=== PATIENT | female | born 1985 | race African-American/Black ===

== ENCOUNTER 2017-12-11 07:38 | Inpatient (IN) | payer OTHER ==
[2017-12-11] MEDS: ELECTROLYTE-148 SOLN 1,000 ML IV SCH (08:05)
[2017-12-11 08:37] VITALS: BMI 42.9
[2017-12-11 08:55] LABS: BASO % 0.4 % (0-2.0); EOS % 1.8 % (0-4.5); HEMATOCRIT 33.5 % (32.4-45.2); HEMOGLOBIN 11.3 GM/dL (10.7-15.3); LYMPH % 24.2 % (8-40); MCH 30.2 pg (25.7-33.7); MCHC 33.7 g/dl (32.0-36.0); MEAN CELL VOLUME 89.7 fl (80-96); MEAN PLT VOLUME 7.7 fl (7.5-11.1); MONO % 5.2 % (3.8-10.2); NEUT % 68.4 % (42.8-82.8); PLATELET COUNT 289 K/MM3 (134-434); RBC 3.74 M/mm3 (3.60-5.2); RDW 13.9 % (11.6-15.6); WHITE BLOOD COUNT 9.7 K/mm3 (4.0-10.0)
[2017-12-11] MEDS ORDERED: CITRIC ACID/SODIUM CITRATE 30 ML UNIT-DOSE CUP PO ONE (09:16)
[2017-12-11 09:17] LABS: INR 1.01 (0.82-1.09); PROTHROMBIN TIME (PATIENT) 11.4 SEC (9.98-11.88)
[2017-12-11 09:18] LABS: ANION GAP 8 (8-16); BLOOD UREA NITROGEN 7 mg/dL (7-18); CHLORIDE 106 mmol/L (98-107); CO2 24 mmol/L (21-32); CREATININE 0.5 mg/dL (0.55-1.02); GLUCOSE,RANDOM 78 mg/dL (74-106); POTASSIUM 3.9 mmol/L (3.5-5.1); SODIUM 138 mmol/L (136-145)
[2017-12-11 09:20] LABS: ACTIVATED PTT 27.4 SECONDS (26.9-34.4)
--- NOTE | 2017-12-11 09:23 | HP ---
Past Medical History - Primary Care Physician PCP:: Live Ferrera - Admission Chief Complaint: 39.6 weeks, previous c/s, morbid obesity History of Present Illness: 32 yo f g 4 p1021 edc by sono 12/12 ,39.6 weeks with previous c/s , requesting repeat c/s , risks discussed , discussed , cx clp, vx -4 mi, fhr cat 1, no contraction. History Source: Patient Limitations to Obtaining History: No Limitations - Past Medical History ...: 4 ...Para: 1 ...Term: 1 ...: 0 ...Spon : 0 ...Induced : 2 ...Multiple Gestation: 0 ...LMP: 03/07/17 ... Weeks Gestation by Dates: 39.6 ...EDC by Dates: 12/12/17 ...EDC by Sono: 12/12/17 - Past Surgical History Past Surgical History: Yes: Hx Myomectomy: No Hx Transabdominal Cerclage: No - Smoking History Smoking history: Never smoked Have you smoked in the past 12 months: No Aproximately how many cigarettes per day: 2 - Alcohol/Substance Use Hx Alcohol Use: No - Social History Usual Living Arrangement: Yes: With Spouse History of Recent Travel: No Home Medications - Allergies Allergies/Adverse Reactions: Allergies Allergy/AdvReac Type Severity Reaction Status Date / Time No Known Allergies Allergy Verified 10/26/15 18:15 - Home Medications Home Medications: Ambulatory Orders Vit 108/Iron/Folic AC [ One Tablet] 1 tab PO DAILY 12/11/17 Review of Systems - Review of Systems Constitutional: reports: No Symptoms Eyes: reports: No Symptoms HENT: reports: No Symptoms Neck: reports: No Symptoms Cardiovascular: reports: No Symptoms Respiratory: reports: No Symptoms Gastrointestinal: reports: No Symptoms Genitourinary: reports: No Symptoms Breasts: reports: No Symptoms Reported Musculoskeletal: reports: No Symptoms Integumentary: reports: No Symptoms Neurological: reports: No Symptoms Endocrine: reports: No Symptoms Hematology/Lymphatic: reports: No Symptoms Psychiatric: reports: No Symptoms Physical Exam - Maternity Vital Signs: Vital Signs Temperature 98.1 F 12/11/17 07:38 Pulse Rate 87 12/11/17 07:38 Respiratory Rate 18 12/11/17 07:38 Blood Pressure 121/81 12/11/17 07:38 O2 Sat by Pulse Oximetry (%) Constitutional: Yes: Well Nourished, No Distress, Calm, Obese Eyes: Yes: WNL, Conjunctiva Clear, EOM Intact HENT: Yes: WNL, Atraumatic, Normocephalic Neck: Yes: WNL, Supple, Trachea Midline Cardiovascular: Yes: WNL, Regular Rate and Rhythm Breast(s): Yes: WNL - Abdominal Exam/OB Fundal Height: 40 Number of Fetuses: Single Presentation: Vertex Intensity: Unaware Monitor Mode: External Heart Rate Location: [facility] Category: I Accelerations: Uniform Decelerations: None - Vaginal Exam/OB Vaginal Bleediing: No Amniotic Membrane Status: Intact Presentation: Vertex/Position Station: -3 - Physical Exam Musculoskeletal: Yes: WNL Extremities: Yes: WNL Edema: LLE: 1+, RLE: 1+ Deep Tendon Reflex Grade: Normal +2 Psychiatric: Yes: WNL - Labs Lab Results: CBC, BMP 12/11/17 08:15 Hemorrhage Risk Assessment - Risk Factors Medium Risk Factors: Yes: Obesity (BMI >40) Risk Score: 1 Risk Level: Medium Risk Problem List - Problems (1) with 39 completed weeks gestation Code(s): Z3A.39 - 39 WEEKS GESTATION OF (2) Previous section Code(s): Z98.891 - HISTORY OF UTERINE SCAR FROM PREVIOUS SURGERY (3) Obesities, morbid Code(s): E66.01 - MORBID (SEVERE) OBESITY DUE TO EXCESS CALORIES (4) Fibroids, intramural Code(s): D25.1 - INTRAMURAL LEIOMYOMA OF UTERUS Assessment/Plan plan repeat c/s, risks discussed
[2017-12-11] MEDS ORDERED: ONDANSETRON 4 MG/2 ML VIAL IVPUSH PRN (09:26)
[2017-12-11] MEDS ORDERED: morphine SULFATE/Preservative Free 0.5 MG/ML (1cc Syringe) ONE (09:32)
[2017-12-11] MEDS ORDERED: BUPIVACAINE 0.75% IN DEXTROSE/PF 2ML AMPULE NR ONE (09:35)
[2017-12-11] MEDS ORDERED: SODIUM CHLORIDE 0.9% P/F 10 ML VIAL IJ ONE (10:02)
[2017-12-11] MEDS ORDERED: ceFAZolin SODIUM 1 GM VIAL ONE (10:02)
[2017-12-11] MEDS ORDERED: OXYTOCIN 10 UNITS/ML VIAL ONE (10:09)
[2017-12-11] MEDS ORDERED: KETOROLAC TROMETHAMINE 30 MG/1 ML VIAL ONE (10:09)
[2017-12-11] MEDS ORDERED: IBUPROFEN 600 MG TABLET (FP) PO PRN (10:54)
[2017-12-11] MEDS ORDERED: METHYLERGONOVINE MALEATE 0.2 MG/1 ML AMP IM PRN (10:54)
[2017-12-11] MEDS ORDERED: diphenhydrAMINE HCL 25 MG CAPSULE (FP) PO PRN (10:54)
[2017-12-11] MEDS ORDERED: WITCH HAZEL 50% (TUCKS) 40 PAD/JAR PAD TP PRN (10:54)
[2017-12-11] MEDS ORDERED: IBUPROFEN 800 MG/8 ML IJ IVPB PRN (10:54)
[2017-12-11] MEDS ORDERED: BENZOCAINE 20% 57 GM BOTTLE TP PRN (10:54)
[2017-12-11] MEDS ORDERED: BENZOCAINE 28 GM HEMORRHOIDAL OINTMENT PR PRN (10:54)
[2017-12-11] MEDS ORDERED: OXYTOCIN 20 UNITS in 0.9% NS 20 UNIT/1,000 ML INFUS.BAG IV SCH (11:00)
--- NOTE | 2017-12-11 11:34 | OP ---
DATE OF OPERATION: 12/11/2017 PREOPERATIVE DIAGNOSIS: at 39.6 weeks' gestation, previous section, morbid obesity, request of repeat section. POSTOPERATIVE DIAGNOSIS: at 39.6 weeks' gestation, previous section, morbid obesity, request of repeat section. PROCEDURE: Repeat low segment transverse section. SURGEON: Jayne Ferrera MD QUALITY CONTROL CHECKER: DEE Nunes ANESTHESIA: Spinal. ANESTHESIOLOGIST: ESTIMATED BLOOD LOSS: 500 mL. FINDINGS: A live baby girl, 9/9, ROT position. Cord around both feet. DESCRIPTION OF PROCEDURE: The patient was taken to the operating room under adequate spinal anesthesia. Abdomen and perineum was prepped and draped. Pfannenstiel abdominal skin incision was made. Abdominal wall was cut layer by layer until the peritoneum was exposed and incised. Upon entering the abdominal cavity, lower uterine segment was identified, and uterovesical fold of peritoneum established. Bladder was pushed down. Then with the lower blade of the Rocael retractor in pelvis, a low transverse uterine incision was made. Incision was extended laterally. Amniotic sac was entered. Clear fluid. Head delivered. Nasopharynx was suctioned, and live baby girl was delivered without any difficulty. Placenta was delivered manually. Uterine cavity was cleaned of all remaining tissue. Uterine incision was closed in 2 layers, the first layer with 0 Biosyn continuous suture, the second layer with 0 Biosyn imbricating the first layer. Bladder flap was closed with 0 Biosyn continuous suture. Both tubes and ovaries were checked and normal. No active bleeding was seen. All of the lap pad, sponge, and instrument counts were correct. Then peritoneum was closed with 0 Biosyn continuous suture. Muscles were brought together with interrupted sutures of 0 Biosyn. Fascia was closed with 0 Biosyn continuous suture, subcutaneous fat interrupted suture of 0 Biosyn, and the skin was closed with nahum. The patient tolerated the procedure well and left the OR in good condition. JAYNE FERRERA M.D. JUAN [id number]
[2017-12-11] MEDS ORDERED: OXYTOCIN 20 UNITS in 0.9% NS 20 UNIT/1,000 ML INFUS.BAG IV ONE (12:22)
[2017-12-11] MEDS: OXYTOCIN 20 UNITS in 0.9% NS 20 UNIT/1,000 ML INFUS.BAG IV SCH (12:35)
[2017-12-11] MEDS: ENOXAPARIN NA (PORCINE) 40 MG/0.4 ML DISP.SYRIN SQ SCH (14:40)
[2017-12-11] MEDS: CEFAZOLIN 1 GM/D5W 1 GM/50 ML BAG IVPB SCH (17:09)
[2017-12-12] MEDS: CEFAZOLIN 1 GM/D5W 1 GM/50 ML BAG IVPB SCH (01:26)
--- NOTE | 2017-12-12 06:01 | PN ---
Post Progress Note - Subjective Subjective: pt no c/o pain , scale 1-3 diaz catheter just removed . Post Day: 1 Type of Delivery: Repeat C/S Vital Signs: Vital Signs Temperature 99.1 F 12/12/17 02:00 Pulse Rate 93 H 12/12/17 02:00 Respiratory Rate 18 12/12/17 03:00 Blood Pressure 132/64 12/12/17 02:00 O2 Sat by Pulse Oximetry (%) 100 12/11/17 13:00 Breast Exam: Yes: Soft, Other (BF , large breast ). No: Engorged Uterus: Yes: Fundus Firm, Fundus below umbilicus, Non-tender Incision: Yes: Dressing dry and intact (stained with blood , as per nursepressure dressing was changed once at 4.00PM 12/11/17, since last night staining of dressing is same, has not got worse ) Abdomen/GI: Yes: Abdomen soft (BS active ), Abdominal Distention (obese abdomen ), Tender, Tolerating PO (clear fluids ). No: Passing flatus Lochia: Yes: Rubra Lochia, amount: Moderate (moderate to heavy) Extremities: Yes: Calves non-tender Activity: Other (not OOB yet ) - Labs Labs: CBC WBC 9.7 K/mm3 (4.0-10.0) 12/11/17 08:15 RBC 3.74 M/mm3 (3.60-5.2) 12/11/17 08:15 Hgb 11.3 GM/dL (10.7-15.3) 12/11/17 08:15 Hct 33.5 % (32.4-45.2) 12/11/17 08:15 MCV 89.7 fl (80-96) 12/11/17 08:15 MCH 30.2 pg (25.7-33.7) 12/11/17 08:15 MCHC 33.7 g/dl (32.0-36.0) 12/11/17 08:15 RDW 13.9 % (11.6-15.6) 12/11/17 08:15 Plt Count 289 K/MM3 (134-434) 12/11/17 08:15 MPV 7.7 fl (7.5-11.1) 12/11/17 08:15 Neutrophils % 68.4 % (42.8-82.8) 12/11/17 08:15 Lymphocytes % 24.2 % (8-40) 12/11/17 08:15 Monocytes % 5.2 % (3.8-10.2) 12/11/17 08:15 Eosinophils % 1.8 % (0-4.5) 12/11/17 08:15 Basophils % 0.4 % (0-2.0) 12/11/17 08:15 Other Findings, Remarks: i/o [id number] , RS cta Problem List - Problems (1) delivery delivered Code(s): O82 - ENCOUNTER FOR DELIVERY WITHOUT INDICATION Assessment/Plan s/p repeat c/section, obesity day#1 Plan cbc today watch for abd dressing , may need to be changed cbc today encourage anbulation, deep breathing , po fluids
[2017-12-12 09:03] LABS: BASO % 0.5 % (0-2.0); EOS % 1.9 % (0-4.5); HEMATOCRIT 31.9 % (32.4-45.2); HEMOGLOBIN 10.5 GM/dL (10.7-15.3); LYMPH % 12.4 % (8-40); MCH 29.7 pg (25.7-33.7); MCHC 33.1 g/dl (32.0-36.0); MEAN CELL VOLUME 89.8 fl (80-96); MEAN PLT VOLUME 7.4 fl (7.5-11.1); MONO % 3.8 % (3.8-10.2); NEUT % 81.4 % (42.8-82.8); PLATELET COUNT 271 K/MM3 (134-434); RBC 3.55 M/mm3 (3.60-5.2); RDW 14.1 % (11.6-15.6); WHITE BLOOD COUNT 15.5 K/mm3 (4.0-10.0)
[2017-12-12] MEDS: SIMETHICONE 80 MG TAB.CHEW (FP) PO PRN ×3 (10:51→22:15)
[2017-12-12] MEDS: ENOXAPARIN NA (PORCINE) 40 MG/0.4 ML DISP.SYRIN SQ SCH (10:51)
[2017-12-12] MEDS: IBUPROFEN 600 MG TABLET (FP) PO PRN ×3 (10:52→22:16)
[2017-12-12] MEDS: ACETAMINOPHEN 325 MG TABLET (FP) PO PRN ×3 (10:53→22:16)
[2017-12-12] MEDS ORDERED: BISACODYL 10 MG SUPP.RECT RC PRN (10:54)
--- NOTE | 2017-12-12 14:00 | PN ---
Progress Note (short form) - Note Progress Note: POD #1 - s/p under spinal anesthesia with duramorph. VSS. Pt. doing well, resting comfortably in bed. No complaints. Good pain control. No apparent anesthetic complications noted. Continue current care.
[2017-12-12] MEDS: ELECTROLYTE-148 SOLN 1,000 ML IV SCH (18:33)
[2017-12-12] MEDS: OXYTOCIN 20 UNITS in 0.9% NS 20 UNIT/1,000 ML INFUS.BAG IV SCH (18:33)
[2017-12-12] MEDS: DEXTROSE 5%-LACTATED RINGERS 1,000 ML IV SCH (18:34)
[2017-12-13] MEDS: oxyCODONE HCL 5 MG TABLET PO PRN ×4 (00:46→21:24)
[2017-12-13] MEDS: SIMETHICONE 80 MG TAB.CHEW (FP) PO PRN ×3 (09:18→21:24)
[2017-12-13] MEDS: ACETAMINOPHEN 325 MG TABLET (FP) PO PRN ×3 (09:19→21:25)
--- NOTE | 2017-12-13 09:46 | PN ---
Post Progress Note - Subjective Subjective: 32 yo Para 2 status post repeat , seen and evaluated. There's significant bleeding at incision site. She c/o incision pain. Post Day: 2 Type of Delivery: Repeat C/S Vital Signs: Vital Signs Temperature 98.8 F 12/12/17 22:00 Pulse Rate 85 12/13/17 06:00 Respiratory Rate 18 12/13/17 06:00 Blood Pressure 113/76 12/13/17 06:00 O2 Sat by Pulse Oximetry (%) 100 12/11/17 13:00 Breast Exam: Yes: Soft Uterus: Yes: Fundus Firm Incision: Yes: Other (Bleeding) Abdomen/GI: Yes: Abdomen soft, Tolerating PO Lochia: Yes: Rubra Lochia, amount: Small Extremities: Yes: Calves non-tender Perineum: Yes: Intact Activity: Other (She's lying in bed) - Labs Labs: CBC WBC 15.5 K/mm3 (4.0-10.0) H D 12/12/17 08:00 RBC 3.55 M/mm3 (3.60-5.2) L 12/12/17 08:00 Hgb 10.5 GM/dL (10.7-15.3) L 12/12/17 08:00 Hct 31.9 % (32.4-45.2) L 12/12/17 08:00 MCV 89.8 fl (80-96) 12/12/17 08:00 MCH 29.7 pg (25.7-33.7) 12/12/17 08:00 MCHC 33.1 g/dl (32.0-36.0) 12/12/17 08:00 RDW 14.1 % (11.6-15.6) 12/12/17 08:00 Plt Count 271 K/MM3 (134-434) 12/12/17 08:00 MPV 7.4 fl (7.5-11.1) L 12/12/17 08:00 Neutrophils % 81.4 % (42.8-82.8) 12/12/17 08:00 Lymphocytes % 12.4 % (8-40) D 12/12/17 08:00 Monocytes % 3.8 % (3.8-10.2) 12/12/17 08:00 Eosinophils % 1.9 % (0-4.5) 12/12/17 08:00 Basophils % 0.5 % (0-2.0) 12/12/17 08:00 Problem List - Problems (1) Status post repeat low transverse section Code(s): Z98.891 - HISTORY OF UTERINE SCAR FROM PREVIOUS SURGERY Assessment/Plan Status post repeat Keep pressure dressing Ambulation Analgesia as needed Continue close observation
[2017-12-13] MEDS: ENOXAPARIN NA (PORCINE) 40 MG/0.4 ML DISP.SYRIN SQ SCH (10:00)
[2017-12-13] MEDS: DEXTROSE 5%-LACTATED RINGERS 1,000 ML IV SCH (11:50)
[2017-12-13] MEDS: ELECTROLYTE-148 SOLN 1,000 ML IV SCH (11:50)
--- NOTE | 2017-12-13 14:27 | PATH ---
Surgical Pathology Report Patient Name: PEDRO ALMEIDA Med. Rec. #: [id number] /Age/Gender: 1985 (Age: 32) / F Account: [id number] Location: [facility] OBS/COLOR MATCHER Taken: 12/11/2017 Received: 12/12/2017 Reported: 12/13/2017 Physicians: Live Ferrera M.D. Specimen(s) Received PLACENTA Clinical History 39.6 weeks gestation, previous section x1, history of chronic hypertension, hyperthyroidism Final Diagnosis PLACENTA, SECTION: 560 g THIRD TRIMESTER PLACENTA WITH TRIVASCULAR UMBILICAL CORD AND UNREMARKABLE PLACENTAL MEMBRANES. Electronically Signed Tara Tsai M.D. Gross Description The specimen is received fresh labeled placenta and is a 560 gram, 20 x 19 x 2.2 cm. placenta with attached membranes and umbilical cord. The attached membranes are andre and translucent with focal opacities and insert marginally. The umbilical cord measures 40 cm. in length and averages 1.2 cm. in diameter. The cord inserts eccentrically. No true knots or strictures are identified. Cut surface of the umbilical cord reveals 3 vessels. The surface is mejía-blue with minimal fibrin deposition and appropriate caliber vessels. The maternal surface is red-brown with focal defects. Sectioning reveals red-brown, spongy parenchyma. No lesions are identified. [employer] Setter sections are submitted in three cassettes as follows: 1- membrane rolls and umbilical cord; 2-3- full thickness sections of placenta. YAS/12/12/2017 denis/12/12/2017
[2017-12-13] MEDS ORDERED: SENNOSIDES/DOCUSATE COMBO (SENNA PLUS) TABLET (UD) PO PRN (22:00)
[2017-12-14 08:01] LABS: BASO % 0.3 % (0-2.0); EOS % 2.3 % (0-4.5); HEMATOCRIT 27.5 % (32.4-45.2); HEMOGLOBIN 9.1 GM/dL (10.7-15.3); LYMPH % 17.4 % (8-40); MCH 29.9 pg (25.7-33.7); MCHC 33.2 g/dl (32.0-36.0); MEAN CELL VOLUME 89.9 fl (80-96); MEAN PLT VOLUME 7.6 fl (7.5-11.1); PLATELET COUNT 288 K/MM3 (134-434); RBC 3.06 M/mm3 (3.60-5.2); WHITE BLOOD COUNT 11.5 K/mm3 (4.0-10.0)
--- NOTE | 2017-12-14 08:24 | PN ---
Post Progress Note - Subjective Subjective: c/o gaseous discomfort , she has not done BM pain scale 3-4/10 Post Day: 3 Type of Delivery: Repeat C/S Vital Signs: Vital Signs Temperature 99.2 F 12/13/17 21:00 Pulse Rate 93 H 12/13/17 21:00 Respiratory Rate 17 12/13/17 21:00 Blood Pressure 117/75 12/13/17 21:00 O2 Sat by Pulse Oximetry (%) 99 12/13/17 21:00 Breast Exam: Yes: Soft, Other (BF & bottle feeding ). No: Engorged Uterus: Yes: Fundus Firm, Fundus below umbilicus, Non-tender Incision: Yes: Dressing dry and intact (not stained any longer ). No: Redness, Oozing Abdomen/GI: Yes: Abdomen soft, Passing flatus, Tolerating PO (diet ). No: Abdominal Distention, Tender Lochia: Yes: Rubra Lochia, amount: Moderate Extremities: Yes: Calves non-tender Perineum: Yes: Intact Activity: Ambulating - Labs Labs: CBC WBC 11.5 K/mm3 (4.0-10.0) H 12/14/17 07:00 RBC 3.06 M/mm3 (3.60-5.2) L 12/14/17 07:00 Hgb 9.1 GM/dL (10.7-15.3) L D 12/14/17 07:00 Hct 27.5 % (32.4-45.2) L 12/14/17 07:00 MCV 89.9 fl (80-96) 12/14/17 07:00 MCH 29.9 pg (25.7-33.7) 12/14/17 07:00 MCHC 33.2 g/dl (32.0-36.0) 12/14/17 07:00 RDW 14.0 % (11.6-15.6) 12/14/17 07:00 Plt Count 288 K/MM3 (134-434) 12/14/17 07:00 MPV 7.6 fl (7.5-11.1) 12/14/17 07:00 Neutrophils % 76.0 % (42.8-82.8) 12/14/17 07:00 Lymphocytes % 17.4 % (8-40) D 12/14/17 07:00 Monocytes % 4.0 % (3.8-10.2) 12/14/17 07:00 Eosinophils % 2.3 % (0-4.5) 12/14/17 07:00 Basophils % 0.3 % (0-2.0) 12/14/17 07:00 Problem List - Problems (1) delivery delivered Code(s): O82 - ENCOUNTER FOR DELIVERY WITHOUT INDICATION Assessment/Plan anemia stable p/a dressing dry , no oozing plan dulcolax suppository encourage anbulation
[2017-12-14] MEDS: oxyCODONE HCL 5 MG TABLET PO PRN (09:33)
[2017-12-14] MEDS: ACETAMINOPHEN 325 MG TABLET (FP) PO PRN ×2 (09:34→17:56)
[2017-12-14] MEDS: PRENATAL VITAMINS W/ FOLIC ACID TABLET (FP) PO SCH (09:34)
[2017-12-14] MEDS: SIMETHICONE 80 MG TAB.CHEW (FP) PO PRN ×2 (09:35→17:57)
[2017-12-14] MEDS: ENOXAPARIN NA (PORCINE) 40 MG/0.4 ML DISP.SYRIN SQ SCH (11:09)
[2017-12-14] MEDS: FERROUS SO4 325 MG TABLET (FP) PO SCH (17:56)
[2017-12-15] MEDS: ACETAMINOPHEN 325 MG TABLET (FP) PO PRN (03:56)
[2017-12-15] MEDS: SIMETHICONE 80 MG TAB.CHEW (FP) PO PRN (03:56)
[2017-12-15] MEDS: FERROUS SO4 325 MG TABLET (FP) PO SCH (08:32)
[2017-12-15 09:11] VITALS: BP 119/75; PULSE 78; TEMP 99.2
[2017-12-15] MEDS: PRENATAL VITAMINS W/ FOLIC ACID TABLET (FP) PO SCH (09:21)
[2017-12-15] MEDS: ENOXAPARIN NA (PORCINE) 40 MG/0.4 ML DISP.SYRIN SQ SCH (09:43)
--- NOTE | 2017-12-15 10:29 | PN ---
Post Progress Note - Subjective Subjective: Patient feeling well. +oob. Tolerating diet. Pain controlled. Breast feeding. Type of Delivery: Repeat C/S Vital Signs: Vital Signs Temperature 99.2 F 12/15/17 08:30 Pulse Rate 78 12/15/17 08:30 Respiratory Rate 20 12/15/17 08:30 Blood Pressure 119/75 12/15/17 08:30 O2 Sat by Pulse Oximetry (%) 99 12/13/17 21:00 Breast Exam: Yes: Soft Uterus: Yes: Fundus Firm Incision: Yes: [place] intact Abdomen/GI: Yes: Abdomen soft Lochia: Yes: Rubra Lochia, amount: Small Extremities: Yes: Calves non-tender Perineum: Yes: Intact Activity: Ambulating - Labs Labs: CBC WBC 11.5 K/mm3 (4.0-10.0) H 12/14/17 07:00 RBC 3.06 M/mm3 (3.60-5.2) L 12/14/17 07:00 Hgb 9.1 GM/dL (10.7-15.3) L D 12/14/17 07:00 Hct 27.5 % (32.4-45.2) L 12/14/17 07:00 MCV 89.9 fl (80-96) 12/14/17 07:00 MCH 29.9 pg (25.7-33.7) 12/14/17 07:00 MCHC 33.2 g/dl (32.0-36.0) 12/14/17 07:00 RDW 14.0 % (11.6-15.6) 12/14/17 07:00 Plt Count 288 K/MM3 (134-434) 12/14/17 07:00 MPV 7.6 fl (7.5-11.1) 12/14/17 07:00 Neutrophils % 76.0 % (42.8-82.8) 12/14/17 07:00 Lymphocytes % 17.4 % (8-40) D 12/14/17 07:00 Monocytes % 4.0 % (3.8-10.2) 12/14/17 07:00 Eosinophils % 2.3 % (0-4.5) 12/14/17 07:00 Basophils % 0.3 % (0-2.0) 12/14/17 07:00 Problem List - Problems (1) delivery delivered Assessment/Plan: Patient POD#4 s/p rpt c/s doing well stable for discharge home had some fluid draining from incision; will have nahum removed in clinic on POD#7 no heavy lifting pelvic rest pnv while breast feeding Dr. Concepcion Code(s): O82 - ENCOUNTER FOR DELIVERY WITHOUT INDICATION
== END 2017-12-15 11:50 | disposition home or self-care (01) | DRG 540 ==
LOC: JLDR 07:38 → J3W 13:25
PROVIDERS: ADMIT Obstetrics & Gynecology; ATTEND Obstetrics & Gynecology
PROC: 10D00Z1 Extraction of Products of Conception, Low, Open Approach (ICD-10-PCS; principal; 2017-12-11)
DX: O34.211 Maternal care for low transverse scar from previous cesarean delivery (principal); O99.213 Obesity complicating pregnancy, third trimester; E66.01 Morbid (severe) obesity due to excess calories; O34.13 Maternal care for benign tumor of corpus uteri, third trimester; D25.1 Intramural leiomyoma of uterus; Z68.41 Body mass index [BMI] 40.0-44.9, adult; Z3A.39 39 weeks gestation of pregnancy; Z37.0 Single live birth; O69.81X0 Labor and delivery complicated by cord around neck, without compression, not applicable or unspecified
CPT/HCPCS: 36415; 80048; 85025; 85610; 85730; 86593; 86850; 86900; 86901; 88307-TC; 94010

== ENCOUNTER 2025-04-25 10:01 | Emergency (ER) | payer OTHER ==
[2025-04-25] MEDS ORDERED: ALBUTEROL SO4 2.5/IPRATROPIUM 0.5 INH SOL 3 ML VIAL.NEB. NEB ONE (10:48)
[2025-04-25] MEDS ORDERED: methylPREDNISolone NA SUCC 125 MG/2 ML VIAL ONE (10:49)
[2025-04-25] MEDS: ALBUTEROL SO4 2.5/IPRATROPIUM 0.5 INH SOL 3 ML VIAL.NEB. NEB SCH (11:00)
[2025-04-25 11:02] VITALS: RESP 20; BMI 40.3
[2025-04-25 11:22] LABS: ABSOLUTE IMMATURE GRANULOCYTES 0.03 x10^3/uL (0.0-0.031); BASOPHILS # 0.02 x10^3/uL (0.01-0.08); EOSINOPHIL % 0.6 % (0.7-5.8); EOSINOPHILS # 0.04 x10^3/uL (0.04-0.36); MCHC 31.0 g/dl (32.2-35.5); MEAN CELL VOLUME 81.9 fl (79.4-94.8); MEAN PLT VOLUME 11.4 fl (9.4-12.3); MONOCYTE # 0.48 x10^3/uL (0.24-0.86); MONOCYTE % 6.8 % (4.7-12.5); RDW 13.1 % (12.1-16.8)
[2025-04-25 11:26] LABS: BG HCT 37.0 % (32.4-45.2); VENOUS BASE EXCESS -0.2 mmol/L (-2-2); VENOUS O2 SATURATION 86.6 % (70-80); VENOUS PCO2 43.0 mmHg (38-52); VENOUS PH 7.383 (7.310-7.410)
[2025-04-25] MEDS: methylPREDNISolone NA SUCC 125 MG/2 ML VIAL IVPB ONE (11:26)
[2025-04-25] MEDS ORDERED: ONDANSETRON 4 MG/2 ML VIAL ONE (12:06)
[2025-04-25] MEDS: ONDANSETRON 4 MG/2 ML VIAL IVPUSH ONE (12:15)
[2025-04-25] MEDS: SODIUM CHLORIDE 0.9% 500 ML INFUS.BAG IV ONE (12:15)
[2025-04-25 12:22] LABS: CO2 25 mmol/L (21-32); GLUCOSE,RANDOM 94 mg/dL (74-106)
[2025-04-25 12:25] LABS: SGPT/ALT 61 U/L (13-61)
[2025-04-25 12:26] LABS: CREATININE 0.4 mg/dL (0.55-1.3); SGOT/AST 49 U/L (15-37)
[2025-04-25 12:27] LABS: TOT PROT 6.9 g/dl (6.4-8.2)
[2025-04-25 12:28] LABS: ALK PHOS 102 U/L (45-117)
[2025-04-25 12:30] LABS: N-TERMINAL BNP 2643.1 pg/ml (5-125)
[2025-04-25 12:52] LABS: HCV DIAGNOSTIC IN-HOUSE W/RFLX NON-REACTIVE (NONREACTIVE)
[2025-04-25 12:56] LABS: HIV INTERPRETATION NEGATIVE (NEGATIVE)
[2025-04-25 16:04] VITALS: BP 147/81; PULSE 105; TEMP 98
[2025-04-25] MEDS ORDERED: AZITHROMYCIN 500 MG TABLET ONE (16:35)
[2025-04-25] MEDS: AZITHROMYCIN 250 MG TABLET PO ONE (16:43)
== END 2025-04-25 17:00 | disposition home or self-care (01) ==
LOC: JER 10:01
PROC: 3E033GC Introduction of Other Therapeutic Substance into Peripheral Vein, Percutaneous Approach (ICD-10-PCS; principal; 2025-04-25)
PROC: 3E033GC Introduction of Other Therapeutic Substance into Peripheral Vein, Percutaneous Approach (ICD-10-PCS; 2025-04-25)
PROC: 3E0F7GC Introduction of Other Therapeutic Substance into Respiratory Tract, Via Natural or Artificial Opening (ICD-10-PCS; 2025-04-25)
DX: J40 Bronchitis, not specified as acute or chronic (principal); R50.9 Fever, unspecified; R07.89 Other chest pain; R05.9 Cough, unspecified; R26.2 Difficulty in walking, not elsewhere classified; R00.0 Tachycardia, unspecified; R06.2 Wheezing; R06.82 Tachypnea, not elsewhere classified
CPT/HCPCS: 36415; 71045-TC-FY; 71275-TC; 80053; 82803; 83880; 84484; 84703; 85025; 85379; 86803; 87389; 87637-QW; 93005; 93010; 99285-25